=== PATIENT | male | born 1940 | race Caucasian/White ===

== ENCOUNTER → 2017-12-01 | Outpatient (CLI) | payer MEDICARE, OTHER | END | disposition home or self-care (01) | LOC: Rad HDHVI 13:50 | PROVIDERS: ATTEND Internal Medicine Cardiovascular Disease | DX: I35.1 Nonrheumatic aortic (valve) insufficiency (principal); I50.33 Acute on chronic diastolic (congestive) heart failure | CPT/HCPCS: 93306 ==

== ENCOUNTER → 2017-12-07 | Outpatient (CLI) | payer MEDICARE, OTHER ==
[~2017-12-07] VITALS: Ht 172.7 cm; Wt 86.2 kg
[~2017-12-07] MED LIST: ADENOSINE 72 MG in GIVE UN-DILUTED 0 ML IV ONE; ADENOSINE 90 MG/30 ML INJ IV ONE
== END | disposition home or self-care (01) ==
LOC: Rad HDHVI 13:23
PROVIDERS: ATTEND Internal Medicine Cardiovascular Disease
DX: I11.0 Hypertensive heart disease with heart failure (principal); I50.33 Acute on chronic diastolic (congestive) heart failure; I21.9 Acute myocardial infarction, unspecified; E78.00 Pure hypercholesterolemia, unspecified; R60.9 Edema, unspecified; Z95.0 Presence of cardiac pacemaker
CPT/HCPCS: 78452; 93005; 96374; 96375; A9500; J0153

== ENCOUNTER → 2018-09-03 | Outpatient (CLI) | payer MEDICARE, OTHER ==
[~2018-09-03] MED LIST changes: -ADENOSINE 72 MG in GIVE UN-DILUTED 0 ML IV ONE; -ADENOSINE 90 MG/30 ML INJ IV ONE; +ATEN50TA PO; +ATOR10TA52 PO; +CHLO50TA PO; +CHOL100040 PO; +NITR0.2D12 TD; +NITR400A2 TL; +OLME20TA19 PO; +OMEP20TA PO; +SUCR1TAB PO
[2018-09-03 10:50] VITALS: BP 125/66
[2018-09-03 11:35] VITALS: BP 106/59
[2018-09-03 16:17] LABS: Basophils # (auto) 0.1 uL; Basophils % (auto) 1.2 % (0.0-2.0); Eosinophils # (auto) 0.2 uL; Hematocrit 42.8 % (41.0-53.0); Hemoglobin 14.3 g/dL (13.5-17.5); Lymphocytes # (auto) 1.2 uL; Lymphocytes % (auto) 17.7 % (10.0-50.0); Mean Corpuscular Hemoglobin 30.5 pg (28.0-32.0); Mean Corpuscular Hgb Conc. 33.5 g/dL (32.0-36.0); Monocytes # (auto) 0.6 uL; Monocytes % (auto) 8.9 % (0.0-12.0); Neutrophils # (auto) 4.8 uL; Neutrophils % (auto) 69.2 % (37.0-80.0); Nucleated Red Blood Cells % 0.3 %; Platelet Count (auto) 160 10^3/uL (140-450); Red Cell Distribution Width 14.6 % (11.8-14.3)
[2018-09-03 16:24] LABS: BUN/Creatinine Ratio 17.4; Calcium 8.9 mg/dL (8.5-10.1); Potassium 3.6 mmol/L (3.5-5.1)
[2018-09-03 16:52] LABS: INR 1.03 (0.9-1.15)
== END | disposition home or self-care (01) ==
LOC: Rad HDHVI 10:27
PROVIDERS: ATTEND Internal Medicine Cardiovascular Disease
DX: Z01.818 Encounter for other preprocedural examination (principal); I49.5 Sick sinus syndrome; D64.9 Anemia, unspecified; I70.0 Atherosclerosis of aorta; I51.7 Cardiomegaly; R79.1 Abnormal coagulation profile; I10 Essential (primary) hypertension; I20.9 Angina pectoris, unspecified; R94.31 Abnormal electrocardiogram [ECG] [EKG]
CPT/HCPCS: 36415; 71046; 80048; 85025; 85610; 85730; 93005; G0463

== ENCOUNTER 2018-09-07 11:37 | Day surgery (SDC) | payer MEDICARE, OTHER ==
[~2018-09-07] VITALS: Ht 172.7 cm; Wt 88.9 kg
[2018-09-07] MEDS ORDERED: ceFAZolin 1GM/50ML 50 ML IV ONE (12:15)
[2018-09-07] MEDS ORDERED: LIDOCAINE 2%HCL (LOCAL ANESTH.) INJ 20ML MDV ONE (13:33)
[2018-09-07] MEDS ORDERED: SODIUM CHL 0.9% 0 ML ONE (14:25)
[2018-09-07] MEDS ORDERED: MIDAZOLAM HCL 1MG/1ML-2 ML VIAL ONE (14:25)
[2018-09-07] MEDS ORDERED: ANGIOMAX 250 MG VIAL IV ONE (14:25)
[2018-09-07] MEDS ORDERED: fentaNYL CITRATE 100 MCG/2 ML VL ONE (14:25)
[2018-09-07] MEDS ORDERED: VANCOMYCIN 1GM/250ML 250 ML IV ONE (14:50)
[2018-09-07] MEDS ORDERED: VANCOMYCIN HCL 1000 MG VL ONE (14:50)
[2018-09-07] MEDS ORDERED: hydrOXYzine HCL 25 MG/ML VL IM ONE (15:06)
== END 2018-09-07 18:24 | disposition home or self-care (01) ==
LOC: CATH 11:37
PROVIDERS: ATTEND Internal Medicine Cardiovascular Disease
DX: I25.10 Atherosclerotic heart disease of native coronary artery without angina pectoris (principal); Z45.010 Encounter for checking and testing of cardiac pacemaker pulse generator [battery]; R94.39 Abnormal result of other cardiovascular function study; I10 Essential (primary) hypertension; E78.5 Hyperlipidemia, unspecified; Z91.041 Radiographic dye allergy status; Z88.2 Allergy status to sulfonamides; Z88.8 Allergy status to other drugs, medicaments and biological substances; Z88.6 Allergy status to analgesic agent; Z95.5 Presence of coronary angioplasty implant and graft; Z82.49 Family history of ischemic heart disease and other diseases of the circulatory system; Z87.891 Personal history of nicotine dependence
CPT/HCPCS: 33228; 93458; A6257; C1760; C1894; J0690; J1644; J2250; J3010; J3370; J7030; 99152

== ENCOUNTER → 2019-04-20 | Outpatient (CLI) | payer MEDICARE, BC, OTHER ==
[~2019-04-20] VITALS: Ht 172.7 cm; Wt 88.9 kg
[~2019-04-20] MED LIST changes: +ADENOSINE 75 MG in GIVE UN-DILUTED 0 ML IV ONE; +ADENOSINE 90 MG/30 ML INJ IV ONE
== END | disposition home or self-care (01) ==
LOC: Rad HDHVI 13:10
PROVIDERS: ATTEND Internal Medicine Cardiovascular Disease
DX: I48.1 Persistent atrial fibrillation (principal); I49.5 Sick sinus syndrome; R00.2 Palpitations; R07.89 Other chest pain; R06.02 Shortness of breath
CPT/HCPCS: 78452; 93005; 96374; 96375; A9500; J0153

== ENCOUNTER → 2019-08-30 | Outpatient (CLI) | payer MEDICARE, BC, OTHER ==
[~2019-08-30] MED LIST changes: -ADENOSINE 75 MG in GIVE UN-DILUTED 0 ML IV ONE; -ADENOSINE 90 MG/30 ML INJ IV ONE; -NITR0.2D12 TD; +NITR0.2D3 TD; -OLME20TA19 PO; +OLME20TA53 PO
[2019-08-30 11:10] VITALS: BP 108/67
[2019-08-30 11:30] VITALS: BP 121/69
--- NOTE | 2019-08-30 11:30 | NUR ---
Pre-Op Discharge Summary: See e-MAR for any medications given for this visit. Pre-op orders received and carried out per MD of EKG, LABS and chest xrays. Patient given a copy of EKG with instructions to go to [facility] out patient for further follow up care.
[2019-08-30 15:24] LABS: Basophils # (auto) 0.1 uL; Basophils % (auto) 1.2 % (0.0-2.0); Eosinophils # (auto) 0.2 uL; Hematocrit 45.6 % (41.0-53.0); Hemoglobin 15.2 g/dL (13.5-17.5); Lymphocytes # (auto) 1.1 uL; Lymphocytes % (auto) 13.6 % (10.0-50.0); Mean Corpuscular Hemoglobin 30.7 pg (28.0-32.0); Mean Corpuscular Hgb Conc. 33.4 g/dL (32.0-36.0); Monocytes # (auto) 0.6 uL; Monocytes % (auto) 7.1 % (0.0-12.0); Neutrophils # (auto) 6.4 uL; Neutrophils % (auto) 76.1 % (37.0-80.0); Platelet Count (auto) 160 10^3/uL (140-450); Red Blood Cells 4.96 10^6/uL (4.5-5.90); White Blood Cell 8.4 10^3/uL (4.4-10.8)
[2019-08-30 15:32] LABS: Urine Blood Negative /uL (Negative); Urine Specific Gravity 1.013 (1.001-1.035)
[2019-08-30 15:34] LABS: Potassium 3.9 mmol/L (3.5-5.1)
[2019-08-30 15:36] LABS: Partial Thromboplastin Time 26.2 sec (23.64-32.05)
[2019-08-30 15:42] LABS: Albumin 3.9 g/dL (3.4-5.0); BUN/Creatinine Ratio 17.3; Bilirubin, Total 0.5 mg/dL (0.2-1.0); Calcium 9.2 mg/dL (8.5-10.1); Total Protein 7.2 g/dL (6.4-8.2)
[2019-08-30 15:43] LABS: Free T4 (Free Thyroxine) 0.8 ng/dL (0.89-1.76); Prostate Specific Antigen 3.65 ng/mL (0.0-4.0)
== END | disposition home or self-care (01) ==
LOC: Rad HDHVI 10:57
PROVIDERS: ATTEND Internal Medicine Cardiovascular Disease
DX: Z01.812 Encounter for preprocedural laboratory examination (principal); C61 Malignant neoplasm of prostate; I11.9 Hypertensive heart disease without heart failure; E03.9 Hypothyroidism, unspecified; K90.9 Intestinal malabsorption, unspecified; E29.1 Testicular hypofunction; N39.0 Urinary tract infection, site not specified; D51.9 Vitamin B12 deficiency anemia, unspecified; Z79.899 Other long term (current) drug therapy; Z95.0 Presence of cardiac pacemaker; Z87.891 Personal history of nicotine dependence; Z88.2 Allergy status to sulfonamides
CPT/HCPCS: 36415; 71046; 80053; 80061; 81003; 82306; 82607; 83036; 84153; 84403; 84439; 84443; 85025; 85610; 85730; 93005; G0463

== ENCOUNTER 2019-09-01 09:09 | Day surgery (SDC) | payer MEDICARE, OTHER ==
[~2019-09-01] VITALS: Ht 172.7 cm; Wt 89.5 kg
[2019-09-01] MEDS ORDERED: ANGIOMAX 250 MG VIAL IV ONE (12:30)
[2019-09-01] MEDS ORDERED: IOHEXOL 350 MG/ML 100ML IJ ONE (12:31)
[2019-09-01] MEDS ORDERED: LIDOCAINE 2%HCL (LOCAL ANESTH.) INJ 20ML MDV ONE (12:31)
[2019-09-01] MEDS ORDERED: fentaNYL CITRATE 100 MCG/2 ML VL ONE (12:31)
[2019-09-01] MEDS ORDERED: SODIUM CHL 0.9% 0 ML ONE (12:31)
[2019-09-01] MEDS ORDERED: MIDAZOLAM HCL 1MG/1ML-2 ML VIAL ONE (12:31)
[2019-09-01] MEDS ORDERED: diphenhdrAMINE HCL 50 MG/1 ML VL ONE (13:00)
[2019-09-01] MEDS ORDERED: methylPREDNISolone SOD SUCC 125 MG/2 ML VL ONE (13:00)
[2019-09-01] MEDS ORDERED: FAMOTIDINE (10MG/ML) 2ML VL IV ONE (13:09)
== END 2019-09-01 15:50 | disposition home or self-care (01) ==
LOC: CATH 09:09
PROVIDERS: ATTEND Internal Medicine Cardiovascular Disease
DX: R07.89 Other chest pain (principal); I25.10 Atherosclerotic heart disease of native coronary artery without angina pectoris; I10 Essential (primary) hypertension; I49.5 Sick sinus syndrome; I73.9 Peripheral vascular disease, unspecified; E78.5 Hyperlipidemia, unspecified; J44.9 Chronic obstructive pulmonary disease, unspecified; Z95.5 Presence of coronary angioplasty implant and graft; Z95.0 Presence of cardiac pacemaker; Z87.891 Personal history of nicotine dependence; Z79.899 Other long term (current) drug therapy; Z82.49 Family history of ischemic heart disease and other diseases of the circulatory system
CPT/HCPCS: 93458; C1760; C1894; J1200; J1644; J2250; J2930; J3010; Q9967; 99152; J3490

== ENCOUNTER → 2020-06-29 | Outpatient (CLI) | payer MEDICARE, OTHER | END | disposition home or self-care (01) | LOC: Rad HDHVI 11:27 | PROVIDERS: ATTEND Internal Medicine Cardiovascular Disease | DX: M16.12 Unilateral primary osteoarthritis, left hip (principal); K40.90 Unilateral inguinal hernia, without obstruction or gangrene, not specified as recurrent; N40.0 Benign prostatic hyperplasia without lower urinary tract symptoms; M62.89 Other specified disorders of muscle | CPT/HCPCS: 73700 ==

== ENCOUNTER → 2020-09-28 | Outpatient (CLI) | payer MEDICARE, BC, OTHER | END | disposition home or self-care (01) | LOC: Rad HDHVI 10:56 | PROVIDERS: ATTEND Internal Medicine Cardiovascular Disease | DX: I49.5 Sick sinus syndrome (principal); I51.7 Cardiomegaly | CPT/HCPCS: 93306 ==

== ENCOUNTER → 2021-03-08 | Outpatient (CLI) | payer MEDICARE, BC, OTHER ==
[~2021-03-08] MED LIST changes: -NITR0.2D3 TD; +NITR0.2D5 TD
== END | disposition home or self-care (01) ==
LOC: Rad HDHVI 03-06 12:43
PROVIDERS: ATTEND Internal Medicine Cardiovascular Disease
DX: D17.9 Benign lipomatous neoplasm, unspecified (principal); M76.892 Other specified enthesopathies of left lower limb, excluding foot; M76.891 Other specified enthesopathies of right lower limb, excluding foot; M16.0 Bilateral primary osteoarthritis of hip
CPT/HCPCS: 72192

== ENCOUNTER → 2021-04-05 | Outpatient (CLI) | payer MEDICARE, BC, OTHER | END | disposition home or self-care (01) | LOC: LAB 10:43 | PROVIDERS: ATTEND Internal Medicine Cardiovascular Disease | DX: R94.4 Abnormal results of kidney function studies (principal) | CPT/HCPCS: 36415; 82565 ==

== ENCOUNTER → 2021-04-08 | Outpatient (CLI) | payer MEDICARE, BC, OTHER ==
[~2021-04-08] MED LIST changes: +IOHEXOL 350 MG/ML 100ML IJ ONE; +READI-CAT 2 (BARIUM SULF)(VANILLA SMOOTHIE) 450ML ONE
[2021-04-08 09:45] VITALS: BP 121/73
[2021-04-08 11:50] VITALS: BP 128/74
== END | disposition home or self-care (01) ==
LOC: Rad HDHVI 09:30
PROVIDERS: ATTEND Internal Medicine Cardiovascular Disease
DX: N42.89 Other specified disorders of prostate (principal)
CPT/HCPCS: G0463; Q9967

== ENCOUNTER → 2021-09-26 | Outpatient (CLI) | payer MEDICARE, BC, OTHER ==
[~2021-09-26] MED LIST changes: -IOHEXOL 350 MG/ML 100ML IJ ONE; -READI-CAT 2 (BARIUM SULF)(VANILLA SMOOTHIE) 450ML ONE
[2021-09-26 12:06] LABS: BUN/Creatinine Ratio 15.2; Calcium 8.4 mg/dL (8.5-10.1); Potassium 3.8 mmol/L (3.5-5.1)
== END | disposition home or self-care (01) ==
LOC: LAB 08:49
PROVIDERS: ATTEND Internal Medicine Cardiovascular Disease
DX: E11.9 Type 2 diabetes mellitus without complications (principal)
CPT/HCPCS: 36415; 80048; 83036

== ENCOUNTER → 2021-12-24 | Outpatient (CLI) | payer MEDICARE, BC, OTHER ==
[2021-12-24 14:08] LABS: Potassium 4.1 mmol/L (3.5-5.1)
[2021-12-24 14:17] LABS: Albumin 3.7 g/dL (3.4-5.0); BUN/Creatinine Ratio 19.4; Bilirubin, Total 0.5 mg/dL (0.2-1.0); Calcium 8.7 mg/dL (8.5-10.1); Total Protein 6.7 g/dL (6.4-8.2)
== END | disposition home or self-care (01) ==
LOC: LAB 09:00
PROVIDERS: ATTEND Internal Medicine Cardiovascular Disease
DX: E11.9 Type 2 diabetes mellitus without complications (principal); E03.9 Hypothyroidism, unspecified; E78.5 Hyperlipidemia, unspecified
CPT/HCPCS: 36415; 80053; 80061; 83036

== ENCOUNTER → 2022-02-17 | Outpatient (CLI) | payer MEDICARE, BC, OTHER | END | disposition home or self-care (01) | LOC: Rad HDHVI 14:52 | PROVIDERS: ATTEND Internal Medicine Cardiovascular Disease | DX: I10 Essential (primary) hypertension (principal); I25.10 Atherosclerotic heart disease of native coronary artery without angina pectoris | CPT/HCPCS: 93880 ==

== ENCOUNTER → 2022-02-26 | Outpatient (CLI) | payer MEDICARE, BC, OTHER | END | disposition home or self-care (01) | LOC: Rad HDHVI 10:48 | PROVIDERS: ATTEND Internal Medicine Cardiovascular Disease | DX: R60.9 Edema, unspecified (principal); E78.00 Pure hypercholesterolemia, unspecified | CPT/HCPCS: 93925 ==

== ENCOUNTER → 2022-09-16 | Outpatient (CLI) | payer MEDICARE, BC ==
[2022-09-16 12:59] LABS: Basophils # (auto) 0.1 10 ^3/uL (0-0.2); Basophils % (auto) 1.4 % (0.0-2.0); Eosinophils # (auto) 0.3 10 ^3/uL (0-0.8); Eosinophils % (auto) 3.7 % (0.0-7.0); Hematocrit 46.4 % (41.0-53.0); Hemoglobin 15.4 g/dL (13.5-17.5); Lymphocytes # (auto) 1.3 10 ^3/uL (0.4-5.4); Lymphocytes % (auto) 15.9 % (10.0-50.0); Mean Corpuscular Hemoglobin 29.7 pg (28.0-32.0); Mean Corpuscular Hgb Conc. 33.1 g/dL (32.0-36.0); Mean Corpuscular Volume 89.7 fL (80.0-100.0); Monocytes # (auto) 0.7 10 ^3/uL (0-1.3); Monocytes % (auto) 9.1 % (0.0-12.0); Neutrophils # (auto) 5.6 10 ^3/uL (1.6-8.6); Neutrophils % (auto) 69.9 % (37.0-80.0); Nucleated Red Blood Cells % 0.1 %; Red Blood Cells 5.18 10^6/uL (4.5-5.90); Red Cell Distribution Width 15.4 % (11.8-14.3)
[2022-09-16 13:03] LABS: Urine Blood Negative /uL (Negative); Urine Specific Gravity 1.029 (1.001-1.035)
[2022-09-16 13:38] LABS: Free T4 (Free Thyroxine) 0.84 ng/dL (0.89-1.76)
[2022-09-16 13:40] LABS: Prostate Specific Antigen 5.25 ng/mL (0.0-4.0)
[2022-09-16 14:51] LABS: Albumin 3.7 g/dL (3.4-5.0); BUN/Creatinine Ratio 20.3; Bilirubin, Total 0.5 mg/dL (0.2-1.0); Potassium 3.8 mmol/L (3.5-5.1); Total Protein 6.5 g/dL (6.4-8.2)
== END | disposition home or self-care (01) ==
LOC: LAB 10:37
PROVIDERS: ATTEND Internal Medicine Cardiovascular Disease
DX: E11.42 Type 2 diabetes mellitus with diabetic polyneuropathy (principal); E55.9 Vitamin D deficiency, unspecified
CPT/HCPCS: 36415; 80053; 80061; 81003; 82306; 82607; 83036; 84153; 84154; 84403; 84439; 84443; 85025

== ENCOUNTER → 2022-12-15 | Outpatient (CLI) | payer MEDICARE, BC | END | disposition home or self-care (01) | LOC: Rad HDHVI 09:47 | PROVIDERS: ATTEND Internal Medicine Cardiovascular Disease | DX: I08.2 Rheumatic disorders of both aortic and tricuspid valves (principal); R00.1 Bradycardia, unspecified; I10 Essential (primary) hypertension | CPT/HCPCS: 93306 ==

== ENCOUNTER → 2023-07-06 | Outpatient (CLI) | payer MEDICARE, BC ==
[~2023-07-06] VITALS: Ht 172.7 cm; Wt 80.3 kg
[~2023-07-06] MED LIST changes: +ADENOSINE 67 MG in GIVE UN-DILUTED 0 ML IV ONE; +ADENOSINE 90 MG/30 ML INJ IV ONE
== END | disposition home or self-care (01) ==
LOC: Rad HDHVI 13:49
PROVIDERS: ATTEND Internal Medicine Cardiovascular Disease
DX: I11.0 Hypertensive heart disease with heart failure (principal); I50.33 Acute on chronic diastolic (congestive) heart failure; I25.10 Atherosclerotic heart disease of native coronary artery without angina pectoris; R07.89 Other chest pain; E11.21 Type 2 diabetes mellitus with diabetic nephropathy; E78.00 Pure hypercholesterolemia, unspecified; Z95.0 Presence of cardiac pacemaker
CPT/HCPCS: 78452; 93005; 96374; 96375; A9500; J0153

== ENCOUNTER → 2023-08-03 | Outpatient (CLI) | payer MEDICARE, BC ==
[~2023-08-03] MED LIST changes: -ADENOSINE 67 MG in GIVE UN-DILUTED 0 ML IV ONE; -ADENOSINE 90 MG/30 ML INJ IV ONE
== END | disposition home or self-care (01) ==
LOC: Rad HDHVI 08:56
PROVIDERS: ATTEND Internal Medicine Cardiovascular Disease
DX: I70.293 Other atherosclerosis of native arteries of extremities, bilateral legs (principal)
CPT/HCPCS: 93925

== ENCOUNTER 2024-05-21 11:39 | Emergency (ER) | payer BC, MEDICARE, OTHER ==
[~2024-05-21] VITALS: Ht 170.2 cm; Wt 78.5 kg
[2024-05-21 14:06] VITALS: BP 109/74; PULSE 75; RESP 18; TEMP 98.2; O2SAT 96
[2024-05-21 14:08] LABS: Basophils # (auto) 0.1 10 ^3/uL (0-0.2); Basophils % (auto) 0.8 % (0.0-2.0); Eosinophils # (auto) 0.3 10 ^3/uL (0-0.8); Eosinophils % (auto) 2.7 % (0.0-7.0); Hematocrit 47.4 % (41.0-53.0); Hemoglobin 16.4 g/dL (13.5-17.5); Lymphocytes # (auto) 1.4 10 ^3/uL (0.4-5.4); Lymphocytes % (auto) 14.7 % (10.0-50.0); Mean Corpuscular Hemoglobin 31.1 pg (28.0-32.0); Mean Corpuscular Hgb Conc. 34.5 g/dL (32.0-36.0); Monocytes # (auto) 0.9 10 ^3/uL (0-1.3); Monocytes % (auto) 9.7 % (0.0-12.0); Neutrophils # (auto) 6.7 10 ^3/uL (1.6-8.6); Neutrophils % (auto) 72.1 % (37.0-80.0); Nucleated Red Blood Cells % 0.1 %; Red Blood Cells 5.27 10^6/uL (4.5-5.90); Red Cell Distribution Width 15.2 % (11.8-14.3); White Blood Cell 9.3 10^3/uL (4.4-10.8)
[2024-05-21 14:12] LABS: Chloride 102 mmol/L (98-107); Potassium 3.4 mmol/L (3.5-5.1); Sodium 140 mmol/L (136-145)
[2024-05-21 14:13] LABS: Anion Gap 4 (5-15); Carbon Dioxide 34 mmol/L (20-30)
[2024-05-21 14:14] LABS: Calcium 9.7 mg/dL (8.7-10.4)
[2024-05-21 14:18] LABS: BUN/Creatinine Ratio 14.7 (10.0-20.0); Blood Urea Nitrogen 21 mg/dL (9-23); Glucose 111 mg/dL (74-106)
[2024-05-21 14:32] LABS: Urine Bacteria FEW /hpf (None Seen); Urine Blood TRACE /uL (Negative); Urine Clarity Clear (Clear); Urine Color Light-Yellow (Yellow); Urine Protein, UAD Negative (Negative); Urine Specific Gravity 1.019 (1.001-1.035); Urine Urobilinogen Normal (Negative); Urine WBC 9 /hpf (0 - 3)
[2024-05-21] MEDS ORDERED: CIPR-173 PO (15:01)
== END 2024-05-21 15:23 | disposition home or self-care (01) ==
LOC: ER 11:39
DX: N39.0 Urinary tract infection, site not specified (principal); F41.9 Anxiety disorder, unspecified; E78.5 Hyperlipidemia, unspecified; I10 Essential (primary) hypertension; Z46.6 Encounter for fitting and adjustment of urinary device; Z88.2 Allergy status to sulfonamides; Z88.6 Allergy status to analgesic agent; Z88.1 Allergy status to other antibiotic agents; Z88.8 Allergy status to other drugs, medicaments and biological substances
CPT/HCPCS: 36415; 51702; 80048; 81001; 85025

== ENCOUNTER → 2025-01-09 | Outpatient (CLI) | payer MEDICARE, BC, OTHER ==
[~2025-01-09] MED LIST changes: +CIPR-173 PO
== END | disposition home or self-care (01) ==
LOC: Rad HDHVI 10:59
PROVIDERS: ATTEND Internal Medicine Cardiovascular Disease
DX: I08.3 Combined rheumatic disorders of mitral, aortic and tricuspid valves (principal); I11.0 Hypertensive heart disease with heart failure; I50.33 Acute on chronic diastolic (congestive) heart failure
CPT/HCPCS: 93306

== ENCOUNTER → 2025-01-24 | Outpatient (CLI) | payer MEDICARE, BC, OTHER ==
[~2025-01-24] VITALS: Ht 175.3 cm; Wt 79.4 kg
[~2025-01-24] MED LIST changes: +ADENOSINE 67 MG in GIVE UN-DILUTED 0 ML IV ONE; +ADENOSINE 90 MG/30 ML INJ IV ONE
== END | disposition home or self-care (01) ==
LOC: Rad HDHVI 11:41
PROVIDERS: ATTEND Internal Medicine Cardiovascular Disease
DX: I49.1 Atrial premature depolarization (principal); I49.3 Ventricular premature depolarization; I44.0 Atrioventricular block, first degree; R06.00 Dyspnea, unspecified; I25.10 Atherosclerotic heart disease of native coronary artery without angina pectoris; I11.0 Hypertensive heart disease with heart failure; I50.33 Acute on chronic diastolic (congestive) heart failure; E11.21 Type 2 diabetes mellitus with diabetic nephropathy; E78.00 Pure hypercholesterolemia, unspecified; I48.0 Paroxysmal atrial fibrillation; I49.5 Sick sinus syndrome; Z95.0 Presence of cardiac pacemaker; Z82.49 Family history of ischemic heart disease and other diseases of the circulatory system
CPT/HCPCS: 78452; 93017; A9500; J0153; 93005; 96374; 96375

== ENCOUNTER → 2025-02-28 | Outpatient (CLI) | payer MEDICARE, BC, OTHER ==
[~2025-02-28] MED LIST changes: -ADENOSINE 67 MG in GIVE UN-DILUTED 0 ML IV ONE; -ADENOSINE 90 MG/30 ML INJ IV ONE; +APIX2.5T PO; +CHOL50007 PO; +EMPA1TAB3 PO; +ESCI10TA PO; +LEVO88TA2 PO; +SEMA2INJ3 SC; +SOTA80TA PO; +TRAZ1TAB12 PO; +TRIA0.5O2 TOP; +UMEC1AER IN
[2025-02-28 08:55] VITALS: BP 111/65; PULSE 68; RESP 16; O2SAT 94
[2025-02-28 09:15] VITALS: BP 110/64; PULSE 63; RESP 16; O2SAT 94
--- NOTE | 2025-03-02 12:47 | DVHHP ---
ADMIT DATE: 03/01/2025 HISTORY OF PRESENT ILLNESS: The patient, who is 85 years old, now having increasing episodes of chest pain. Stress test also shows inferior wall reversibility and because of the presentation style, the patient should undergo coronary angiography. Risks and benefits were explained to the patient. He is having increasing lethargy and fatigue as well. He denies any fever, chills, melena or hematochezia. No history of CVA. No history of seizure disorders. No history of recent travel abroad. No bleeding diathesis. No hematemesis, hemoptysis, melena, hematochezia or hematuria. Denies any inflammatory processes, such as rheumatoid arthritis, lupus, inflammatory bowel disease. No history of irritable bowel syndrome. Positive for osteoarthritis, especially the lower back, knee and hip as well. Denies any recent trauma. PHYSICAL EXAMINATION: VITAL SIGNS: Blood pressure is 132/80, pulse 70, O2 saturation 96% on room air. HEENT: Pupils are reactive. Funduscopic exam is benign, sclerae anicteric. Extraocular muscles are intact. Oral mucosa moist. Posterior pharynx without any exudate. NECK: No JVD appreciated. Carotid pulses are 2+ and symmetrical. PULMONARY: Clear to auscultation. Tympanic to percussion. CARDIOVASCULAR: Regular rate without S3 or S4. No murmurs, no clicks, no rubs appreciated. ABDOMEN: Soft. Stool guaiac is negative. EXTREMITIES: 2+ pulses. NEUROLOGIC: The patient is intact. ASSESSMENT AND PLAN: Thus, the patient with ongoing chest pain, shortness of breath, now to undergo coronary angiography with abnormal stress test. Further recommendations after the procedure of the left heart catheter. Risks and benefits were explained to the patient. Dav Vásquez MD SA/SHRUTHI/KENYETTA TID: [id number] RECEIPT: [id number]
--- NOTE | 2025-03-06 13:34 | DVH ---
EXAM: XY CHEST TWO VIEWS ROUTINE CLINICAL HISTORY: Pain. COMPARISON: None TECHNIQUE: Frontal and lateral view of the chest was obtained FINDINGS: Lines and Tubes: Cardiac pacemaker projects over the right chest wall. Lungs: No focal consolidation. Pleura: No effusion. No pneumothorax. Cardiomediastinal contours: Unremarkable Bones: No acute osseous abnormality. IMPRESSION: No acute cardiopulmonary disease.
== END | disposition home or self-care (01) ==
LOC: Rad HDHVI 08:47
PROVIDERS: ATTEND Internal Medicine Cardiovascular Disease
DX: Z01.818 Encounter for other preprocedural examination (principal); I49.1 Atrial premature depolarization; R06.02 Shortness of breath; R53.83 Other fatigue
CPT/HCPCS: 71046; 93005; G0463

== ENCOUNTER 2025-03-02 08:02 | Day surgery (SDC) | payer MEDICARE, BC, OTHER ==
[2025-02-28 11:43] LABS: Basophils # (auto) 0.2 10 ^3/uL (0-0.2); Basophils % (auto) 1.5 % (0.0-2.0); Eosinophils # (auto) 0.5 10 ^3/uL (0-0.8); Eosinophils % (auto) 4.6 % (0.0-7.0); Hematocrit 44.5 % (41.0-53.0); Hemoglobin 15.4 g/dL (13.5-17.5); Lymphocytes # (auto) 2.2 10 ^3/uL (0.4-5.4); Lymphocytes % (auto) 20.7 % (10.0-50.0); Mean Corpuscular Hemoglobin 30.7 pg (28.0-32.0); Mean Corpuscular Hgb Conc. 34.6 g/dL (32.0-36.0); Mean Corpuscular Volume 88.6 fL (80.0-100.0); Monocytes # (auto) 1.1 10 ^3/uL (0-1.3); Monocytes % (auto) 10.2 % (0.0-12.0); Neutrophils # (auto) 6.7 10 ^3/uL (1.6-8.6); Nucleated Red Blood Cells % 0.1 %; Platelet Count (auto) 164 10^3/uL (140-450); Red Blood Cells 5.03 10^6/uL (4.5-5.90); Red Cell Distribution Width 15.5 % (11.8-14.3); White Blood Cell 10.7 10^3/uL (4.4-10.8)
[2025-02-28 11:54] LABS: Anion Gap 8 (5-15); Chloride 102 mmol/L (98-107); Sodium 142 mmol/L (136-145)
[2025-02-28 11:55] LABS: Calcium 10.1 mg/dL (8.7-10.4)
[2025-02-28 11:56] LABS: INR 1.13 (0.9-1.15); Partial Thromboplastin Time 31.6 SEC (24.5-34.5); Prothrombin Time 11.8 sec (9.3-11.8)
[2025-02-28 12:00] LABS: BUN/Creatinine Ratio 22.5 (10.0-20.0); Blood Urea Nitrogen 29 mg/dL (9-23); Carbon Dioxide 32 mmol/L (20-31); Glucose 132 mg/dL (74-106); Potassium 2.9 mmol/L (3.5-5.1)
[~2025-03-02] VITALS: Ht 172.7 cm; Wt 78.5 kg
[2025-03-02] VITALS (9 sets, daily range): BP systolic 105–127; BP diastolic 50–71; PULSE 63–85; RESP 12–19; TEMP 97.7; O2SAT 92–95
[~2025-03-02 08:02] MED LIST changes: -ATEN50TA PO; -CHOL100040 PO; -CIPR-173 PO; -NITR0.2D5 TD
[2025-03-02] MEDS: POTASSIUM CHL 20 Meq TABLET PO ONE (09:25)
[2025-03-02] MEDS: ANGIOMAX 250 MG VIAL IV ONE (11:51)
[2025-03-02] MEDS: methylPREDNISolone SOD SUCC 125 MG/2 ML VL ONE (11:51)
[2025-03-02] MEDS: diphenhdrAMINE HCL 50 MG/1 ML VL ONE (11:51)
[2025-03-02] MEDS: fentaNYL CITRATE 100 MCG/2 ML VL ONE (11:52)
[2025-03-02] MEDS: SODIUM CHL 0.9% 50 ML ONE (11:52)
[2025-03-02] MEDS: MIDAZOLAM HCL 2MG/2ML 2ml VIAL (1mg/ml) ONE (11:52)
[2025-03-02] MEDS: LIDOCAINE 2%HCL (LOCAL ANESTH.) INJ 20ML MDV ONE (11:52)
[2025-03-02] MEDS: POTASSIUM CHLORIDE 40 MEQ, LIDOCAINE 1% (LOCAL ANESTH.) 4 ML in SODIUM CHL 0.9% 250 ML IV ONE (12:38)
--- NOTE | 2025-03-02 12:43 | DVHDS ---
DATE OF DISCHARGE: 03/02/2025 DISCHARGE DIAGNOSES: The patient with hyperdynamic contractility. LVEDP was preserved. No evidence for any coronary artery disease. No evidence for diastolic heart failure. HOSPITAL COURSE: At this time, the patient should be aggressively treated for hypertension. If it is tachycardic, heart rate needs to be controlled, but no catheter-based surgical intervention is warranted. Stable at the time of discharge. DISPOSITION: Home. ACTIVITY: As instructed. DIET: 2 gram sodium diet. Dav Vásquez MD SA/NERISSA TID: [id number] RECEIPT: [id number]
--- NOTE | 2025-03-02 12:49 | DVHOP ---
DATE OF SURGERY: 03/02/2025 CARDIAC CATHETERIZATION REPORT PROCEDURE PERFORMED: * Selective left and right coronary angiography. * Ventriculogram. * Right iliac angiography. * Conscious sedation. PROCEDURE: The patient was prepped and draped in a sterile condition. A 1% Xylocaine was used to anesthetize the right groin. Using a Cook needle, the right femoral artery was engaged with Seldinger technique, a 6-Kyrgyz sheath in the right femoral artery. Using a 6-Kyrgyz JL4 catheter and a 6-Kyrgyz JR4 catheter, selective left and right coronary angiography was performed. Using a 6-Kyrgyz Pigtail catheter, ventriculogram was done. Total contrast used was 60 mL of Optiray. Total fluoro time was 1.5 minutes. RESULTS: * Left main patent. * Left anterior descending artery without any flow restrictive lesion. * Circumflex without any flow restrictive lesion. * Right coronary artery without any flow restrictive lesion. * Left ventricular function was hyperdynamic contractility, EF of greater than 65% with an LVEDP of 15 mmHg with no gradient across the aortic valve. Left ventricular systolic pressure of 130. Thus, the patient with hyperdynamic contractility. Otherwise, no clinical findings. Coronary anatomy is within normal limits. Left ventricular function was hyperdynamic with an EF of greater than 65%. LVEDP was within normal limits. Continue all current medications. No changes are required. Follow up in approximately 1-week period in my office. Dav Vásquez MD SA/ÁLVARO TID: [id number] RECEIPT: [id number]
== END 2025-03-02 15:35 | disposition home or self-care (01) ==
LOC: CATH 08:02
PROVIDERS: ATTEND Internal Medicine Cardiovascular Disease
DX: I25.10 Atherosclerotic heart disease of native coronary artery without angina pectoris (principal); F41.9 Anxiety disorder, unspecified; Z79.899 Other long term (current) drug therapy; Z87.891 Personal history of nicotine dependence
CPT/HCPCS: 36415; 80048; 85025; 85610; 85730; 93458; C1760; C1769; C1894; J1200; J2003; J2250; J2919; J3010; J3480; J7050; 99152

== ENCOUNTER → 2025-03-08 | Outpatient (CLI) | payer MEDICARE, BC, OTHER ==
[2025-03-08 11:35] VITALS: BP 103/61; PULSE 77; RESP 18; O2SAT 94
[2025-03-08] MEDS: SODIUM CHLORIDE 0.9% 500 ML IV ONE (11:53)
[2025-03-08 14:00] VITALS: BP 101/55; PULSE 69; RESP 16; O2SAT 94
== END | disposition home or self-care (01) ==
LOC: CHF HDHVI 11:39
PROVIDERS: ATTEND Internal Medicine Cardiovascular Disease
DX: E86.9 Volume depletion, unspecified (principal); R53.83 Other fatigue; I11.0 Hypertensive heart disease with heart failure; I50.33 Acute on chronic diastolic (congestive) heart failure; I25.10 Atherosclerotic heart disease of native coronary artery without angina pectoris; I48.0 Paroxysmal atrial fibrillation; E11.9 Type 2 diabetes mellitus without complications; E78.00 Pure hypercholesterolemia, unspecified; Z79.899 Other long term (current) drug therapy; Z87.891 Personal history of nicotine dependence
CPT/HCPCS: 96360; 96361; G0463; J7040

== ENCOUNTER 2025-04-19 10:54 | Outpatient (CLI) | payer MEDICARE, BC, OTHER ==
--- NOTE | 2025-04-19 12:16 | DVH ---
XY CHEST TWO VIEWS ROUTINE CLINICAL HISTORY: COUGH COMPARISON: XY CHEST TWO VIEWS ROUTINE on DOS: 02/28/25 TECHNIQUE: Frontal and lateral view of the chest was obtained FINDINGS: Lines and Tubes: Right chest wall pacemaker. Lungs: No focal consolidation. Pleura: No effusion. No pneumothorax. Cardiomediastinal contours: Unremarkable Bones: No acute osseous abnormality. IMPRESSION: No acute cardiopulmonary disease.
== END 2025-04-19 17:00 | disposition home or self-care (01) ==
LOC: Rad HDHVI 10:54
PROVIDERS: ATTEND Internal Medicine Cardiovascular Disease
DX: R05.9 Cough, unspecified (principal)
CPT/HCPCS: 71046